=== PATIENT | male | born 1955 | race Caucasian/White ===

== ENCOUNTER → 2016-06-28 | Outpatient (CLI) | payer MEDICARE ==
--- NOTE | 2016-06-28 13:00 | US ---
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 Follow up righ t parotid nodule, history of biopsy. TECHNIQUE: Multiple sonographic images of the right parotid gland. FINDINGS: Redemonstrated 0.9 x 0.8 x 0.8cm hypoechoic to anechoic round lesion within the superficial lobe of t he right parotid gland with peripheral vascularity and posterior through transmission. This appears t o have been present on 05/12/2009 and corresponds to the enhancing nodule on CT of the same day. This measured 8 mm on 07/14/2015 and 8 mm on 05/12/2009. IMPRESSION: Solid homogeneous nodule within the superficial lobe of the right parotid gland measuring up to 9 mm. This measured 8 mm on 05/12/2009. Correlate with results from prior biopsy.
== END | disposition home or self-care (01) ==
LOC: RADUSWWP 10:08
PROVIDERS: ATTEND Otolaryngology
DX: K11.8 Other diseases of salivary glands (principal)
CPT/HCPCS: 76536

== ENCOUNTER → 2017-10-17 | Outpatient (CLI) | payer MEDICARE ==
--- NOTE | 2017-10-17 07:57 | US ---
EXAMINATION TYPE: US thyroid st tissue head/neck DATE OF EXAM: 10/17/2017 COMPARISON: US dated 06/28/2016 and biopsy dated 07/23/2015. CLINICAL HISTORY: D11.9 Right parotic nodule. Known parotid nodule, F/U Anechoic nodule with posterior enhancement within right parotid gland= 0.9 x 0.7 x 0.9 cm, essentiall y unchanged from previous. This measured 0.8 x 0.8 x 0.8 cm on the prior of 06/28/2016 and was previou sly biopsied and 07/23/2015. IMPRESSION: No interval growth of the previously biopsied rounded, benign-appearing right parotid gland lesion in comparison to the prior.
== END | disposition home or self-care (01) ==
LOC: RADUSWWP 07:26
PROVIDERS: ATTEND Otolaryngology
DX: D11.9 Benign neoplasm of major salivary gland, unspecified (principal)
CPT/HCPCS: 76536

== ENCOUNTER → 2019-01-28 | Outpatient (CLI) | payer MEDICARE ==
--- NOTE | 2019-01-28 09:00 | US ---
EXAMINATION TYPE: US thyroid st tissue head/neck DATE OF EXAM: 01/28/2019 COMPARISON: 06/28/2016 CLINICAL HISTORY: E04.1 Thyroid nodule; D11.0 Parotid Nodule. Follow up to previous. Area seen on previous scans not visualized today. IMPRESSION: Area of abnormality noted on the prior exam is not seen on today's exam.
== END | disposition home or self-care (01) ==
LOC: RADUSWWP 08:19
PROVIDERS: ATTEND Otolaryngology
DX: E04.1 Nontoxic single thyroid nodule (principal); D11.0 Benign neoplasm of parotid gland
CPT/HCPCS: 76536

== ENCOUNTER → 2019-09-29 | Outpatient (CLI) | payer MEDICARE ==
--- NOTE | 2019-09-29 09:26 | US ---
EXAMINATION TYPE: US duplex aorta DATE OF EXAM: 09/29/2019 COMPARISON: NONE CLINICAL HISTORY: Z13.6 screening for cardiovascular disorder. EXAM MEASUREMENTS: Abdominal Aorta: Proximal: 2.3cm Mid: 2.1cm Distal: 1.8cm Bifurcation: Right: 1.0.cm Left 1.1cm Patient of large body habitus, technically difficult study. IMPRESSION: No evidence for abdominal aortic aneurysm. Atheromatous changes identified.
--- NOTE | 2019-09-29 09:50 | CTL ---
EXAMINATION TYPE: CT Low Dose Lung DATE OF EXAM ORDERED: 09/29/2019 HISTORY: Personal history tobacco use. Lung cancer screening CT DLP: 150.[address] CTDI: 3.6 mGy Automated exposure control for dose reduction was used. SCREENING VISIT: 1 COMPARISON: CT chest 12/04/2009 TECHNIQUE: Low dose computed tomography scan was performed through the chest at 1 mm thick sections a nd reconstructed images in the coronal plane at [address] DIAGNOSTIC QUALITY: Satisfactory FINDINGS: LUNG NODULES: Present, detailed below: Left lung a nodule with a size of the millimeters. Nodule Size in Millimeters 3 mm was visualized wit h Nodule Type: Solid that is Nodule state: in nature on image # CT Image slide number [id number]. Lesion is subpleural location Left lung a nodule with a size of 2 mm. Nodule Size in Millimeters 2 mm was visualized with Nodule T ype: Solid that is Nodule state: in nature on image # CT Image slide number [id number]. LUNGS: COPD: Severity: None Fibrosis: Severity: None Lymph nodes: Nonenlarged Other findings: RIGHT PLEURAL SPACE: Effusion: None Calcification: None Thickening: None Pneumothorax: None LEFT PLEURAL SPACE: Effusion: None Calcification: None Thickening: None Pneumothorax: None HEART: Heart Size: Normal Coronary calcification: Moderate Pericardial effusion: None OTHER FINDINGS: Upper abdomen: Unremarkable Bony thorax: Multilevel spondylosis Supraclavicular region: Within normal limits Other: IMPRESSION: Benign FOLLOW UP CT CHEST RECOMMENDATION: [address] LUNG RAD: 2
== END | disposition home or self-care (01) ==
LOC: RADCTMAIN 08:26
PROVIDERS: ATTEND Internal Medicine
DX: Z12.2 Encounter for screening for malignant neoplasm of respiratory organs (principal); Z87.891 Personal history of nicotine dependence; Z13.6 Encounter for screening for cardiovascular disorders
CPT/HCPCS: 93979; G0297

== ENCOUNTER → 2020-12-29 | Outpatient (CLI) | payer MEDICARE ==
--- NOTE | 2020-12-29 13:12 | CT ---
EXAMINATION TYPE: CT sinus wo con DATE OF EXAM: 12/29/2020 COMPARISON: None HISTORY: chronic sinusitis CT DLP: 600 mGycm. Automated Exposure Control for Dose Reduction was Utilized. TECHNIQUE: CT scan of the sinuses is performed without contrast, axial images are obtained, coronal r eformatted images are also reviewed. FINDINGS: The paranasal sinuses including the frontal, ethmoid, sphenoid, and maxillary sinuses bila terally are remarkable for inflammatory change in the maxillary sinus on the right, there is mucoperi osteal thickening on the left, difficult to exclude underlying polyp disease Visualized portion of mastoid air cells show no abnormal opacification. The globes are intact bilate rally. IMPRESSION: The sinuses are remarkable for bilateral maxillary sinus disease as described.
== END | disposition home or self-care (01) ==
LOC: RADCTMAIN 11:03
PROVIDERS: ATTEND Family Medicine
DX: J32.0 Chronic maxillary sinusitis (principal)
CPT/HCPCS: 70486

== ENCOUNTER → 2021-05-16 | Outpatient (CLI) | payer MEDICARE ==
--- NOTE | 2021-05-16 14:49 | US ---
EXAMINATION TYPE: US kidneys/renal and bladder DATE OF EXAM: 05/16/2021 COMPARISON: NONE CLINICAL HISTORY: R82.89 ABN FINDINGS CYTOLOGICAL EXAM OF URINE. abn urine, increased urinary frequen cy EXAM MEASUREMENTS: Right Kidney: 11.8 x 5.9 x 7.5 cm Left Kidney: 12.3 x 5.7 x 7.2 cm Right Kidney: No hydronephrosis or masses seen Left Kidney: No hydronephrosis or masses seen Bladder: wnl Bilateral Jets seen: Yes IMPRESSION: 1. Normal renal ultrasound
== END | disposition home or self-care (01) ==
LOC: RADUSWWP 13:27
PROVIDERS: ATTEND Family Medicine
DX: R82.89 Other abnormal findings on cytological and histological examination of urine (principal)
CPT/HCPCS: 76770

== ENCOUNTER 2021-09-03 12:45 | Emergency (ER) | payer MEDICARE ==
[2021-09-03 13:31] LABS: Appearance,Urine Cloudy (Clear); Bacteria,Urine Moderate /hpf; Bilirubin,Urine Negative (Negative); Blood,Urine Large (Negative); Color,Urine Yellow; Glucose,Urine (UA) Negative (Negative); Ketones,Urine Negative (Negative); Leukocyte Esterase,Urine Large (Negative); Mucus,Urine Occasional /hpf; Nitrite,Urine Positive (Negative); PH, Urine 5.5 (5.0-8.0); Protein,Urine 2+ (Negative); RBC,Urine 123 /hpf (0-5); Specific Gravity,Urine 1.016 (1.001-1.035); Urobilinogen,Urine <2.0 mg/dL (<2.0); WBC,Urine >182 /hpf (0-5)
[2021-09-03] MEDS ORDERED: ACETAMINOPHEN TAB 325 MG TAB PO STA ×2 (14:15→15:41)
[2021-09-03] MEDS ORDERED: SODIUM CHLORIDE 0.9% 500 ML 500 ML IV STA (14:15)
--- NOTE | 2021-09-03 14:53 | ED ---
General Adult HPI - General Chief complaint: Fever Stated complaint: Fever, post surgery Time Seen by Provider: 09/03/21 14:38 Source: patient, family, RN notes reviewed, old records reviewed Mode of arrival: ambulatory Limitations: no limitations - History of Present Illness Initial comments: 65-year-old male presents to the emergency room with his complaining of fever and chills and generalized malaise that started around 11:00 today. He did take Tylenol around 11:00. Patient had an outpatient shaving of his prostate with Dr. Melara and had Armando catheter removed yesterday. He has no complaints of dysuria. Patient was treated for urosepsis [address] [facility] with E. coli infection and the symptoms today are similar to when he was admitted at that time. Patient did do an at home Covid test which was negative. He denies any cough, shortness of breath, chest pain or abdominal pain. -: hour(s) (5) Severity scale (1-10): 0 Consistency: constant Improves with: none Worsens with: none Associated Symptoms: fever/chills, malaise Treatments Prior to Arrival: none - Related Data Home Medications Medication Instructions Recorded Confirmed Finasteride [Proscar] 5 mg PO DAILY 09/03/21 09/03/21 Previous Rx's Medication Instructions Recorded Cephalexin [Keflex] 500 mg PO QID 10 Days #40 cap 09/03/21 Allergies Allergy/AdvReac Type Severity Reaction Status Date / Time No Known Allergies Allergy Verified 09/03/21 14:33 Review of Systems ROS Statement: Those systems with pertinent positive or pertinent negative responses have been documented in the HPI. ROS Other: All systems not noted in ROS Statement are negative. Past Medical History Past Medical History: Prostate Disorder Additional Past Medical History / Comment(s): Arthritis in hands. History of Any Multi-Drug Resistant Organisms: None Reported Past Surgical History: Joint Replacement Additional Past Surgical History / Comment(s): Left TKR. prostate surgery (cut some out), sinus surgery Past Anesthesia/Blood Transfusion Reactions: No Reported Reaction Past Psychological History: No Psychological Hx Reported Smoking Status: Never smoker Past Alcohol Use History: Occasional Past Drug Use History: None Reported - Past Family History Mother Family Medical History: Cancer, COPD Additional Family Medical History / Comment(s): Colon cancer. Father Family Medical History: Cancer Additional Family Medical History / Comment(s): Unknown cancer. Malaria. General Exam Limitations: no limitations General appearance: alert, in no apparent distress Head exam: Present: atraumatic Eye exam: Present: normal appearance. Absent: scleral icterus, conjunctival injection, periorbital swelling, periorbital tenderness ENT exam: Present: normal exam, normal oropharynx, mucous membranes moist Neck exam: Present: normal inspection, full ROM. Absent: tenderness, meningismus Respiratory exam: Present: normal lung sounds bilaterally. Absent: respiratory distress, accessory muscle use Cardiovascular Exam: Present: tachycardia GI/Abdominal exam: Present: soft, normal bowel sounds. Absent: distended, tenderness, rigid Extremities exam: Present: normal inspection, normal capillary refill. Absent: pedal edema Back exam: Present: normal inspection, full ROM. Absent: tenderness, CVA tenderness (R), CVA tenderness (L), rash noted Neurological exam: Present: alert, oriented X3 Psychiatric exam: Present: normal affect, normal mood Skin exam: Present: warm, dry, normal color. Absent: cyanosis, diaphoretic, petechiae, pallor Course Vital Signs 09/03/21 09/03/21 09/03/21 12:51 14:56 15:45 Temperature 100.6 F H 99.3 F Pulse Rate 101 H 84 Respiratory 18 16 Rate Blood Pressure 104/66 109/53 O2 Sat by Pulse 96 Oximetry Medical Decision Making - Medical Decision Making Patient presents with fever that started at 11:00 today generalized malaise. He underwent resection of prostate and had a catheter removed by Dr. Melara on . Urinalysis shows greater than 182 white blood cells with moderate bacteria and positive nitrites. There is slight leukocytosis with a white blood count of 11. Patient was given a gram of Rocephin IV. Urine and blood culture was sent. Patient states he did have urinary tract infection 5 weeks ago and was treated with Macrobid for E. coli infection. His temperature resolved with Tylenol and he is feeling much better after IV fluids. He was discharged home on Keflex, directed to contact Dr. Stratton Sunday morning to notify him of infection. Instructed to return to the emergency room with a new or concerning symptoms including increased malaise, persistent fevers, nausea vomiting or abdominal pain. Patient is agreeable to this plan of care. Case was discussed with Dr. Hall. - Lab Data Result diagrams: 09/03/21 14:50 09/03/21 14:50 Lab Results 09/03/21 09/03/21 09/03/21 Range/Units 13:06 14:50 14:50 WBC 11.4 H (3.8-10.6) k/uL RBC 4.18 L (4.30-5.90) m/uL Hgb 12.2 L (13.0-17.5) gm/dL Hct 37.5 L (39.0-53.0) % MCV 89.7 (80.0-100.0) fL MCH 29.3 (25.0-35.0) pg MCHC 32.6 (31.0-37.0) g/dL RDW 14.1 (11.5-15.5) % Plt Count 225 (150-450) k/uL MPV 6.9 Neutrophils % 86 % Lymphocytes % 6 % Monocytes % 5 % Eosinophils % 1 % Basophils % 1 % Neutrophils # 9.8 H (1.3-7.7) k/uL Lymphocytes # 0.7 L (1.0-4.8) k/uL Monocytes # 0.6 (0-1.0) k/uL Eosinophils # 0.1 (0-0.7) k/uL Basophils # 0.1 (0-0.2) k/uL Sodium 132 L (137-145) mmol/L Potassium 4.3 (3.5-5.1) mmol/L Chloride 101 (98-107) mmol/L Carbon Dioxide 24 (22-30) mmol/L Anion Gap 7 mmol/L BUN 16 (9-20) mg/dL Creatinine 0.82 (0.66-1.25) mg/dL Est GFR (CKD-EPI)AfAm >90 (>60 ml/min/1.73 sqM) Est GFR (CKD-EPI)NonAf >90 (>60 ml/min/1.73 sqM) Glucose 104 H (74-99) mg/dL Plasma Lactic Acid Yahir (0.7-2.0) mmol/L Calcium 9.0 (8.4-10.2) mg/dL Total Bilirubin 0.4 (0.2-1.3) mg/dL AST 28 (17-59) U/L ALT 25 (4-49) U/L Alkaline Phosphatase 75 (38-126) U/L Total Protein 7.2 (6.3-8.2) g/dL Albumin 4.3 (3.5-5.0) g/dL Urine Color Yellow Urine Appearance Cloudy (Clear) Urine pH 5.5 (5.0-8.0) Ur Specific [place] 1.016 (1.001-1.035) Urine Protein 2+ H (Negative) Urine Glucose (UA) Negative (Negative) Urine Ketones Negative (Negative) Urine Blood Large H (Negative) Urine Nitrite Positive (Negative) Urine Bilirubin Negative (Negative) Urine Urobilinogen <2.0 (<2.0) mg/dL Ur Leukocyte Esterase Large H (Negative) Urine RBC 123 H (0-5) /hpf Urine WBC >182 H (0-5) /hpf Urine Bacteria Moderate H (None) /hpf Urine Mucus Occasional H (None) /hpf 09/03/21 Range/Units 14:50 WBC (3.8-10.6) k/uL RBC (4.30-5.90) m/uL Hgb (13.0-17.5) gm/dL Hct (39.0-53.0) % MCV (80.0-100.0) fL MCH (25.0-35.0) pg MCHC (31.0-37.0) g/dL RDW (11.5-15.5) % Plt Count (150-450) k/uL MPV Neutrophils % % Lymphocytes % % Monocytes % % Eosinophils % % Basophils % % Neutrophils # (1.3-7.7) k/uL Lymphocytes # (1.0-4.8) k/uL Monocytes # (0-1.0) k/uL Eosinophils # (0-0.7) k/uL Basophils # (0-0.2) k/uL Sodium (137-145) mmol/L Potassium (3.5-5.1) mmol/L Chloride (98-107) mmol/L Carbon Dioxide (22-30) mmol/L Anion Gap mmol/L BUN (9-20) mg/dL Creatinine (0.66-1.25) mg/dL Est GFR (CKD-EPI)AfAm (>60 ml/min/1.73 sqM) Est GFR (CKD-EPI)NonAf (>60 ml/min/1.73 sqM) Glucose (74-99) mg/dL Plasma Lactic Acid Yahir 1.6 (0.7-2.0) mmol/L Calcium (8.4-10.2) mg/dL Total Bilirubin (0.2-1.3) mg/dL AST (17-59) U/L ALT (4-49) U/L Alkaline Phosphatase (38-126) U/L Total Protein (6.3-8.2) g/dL Albumin (3.5-5.0) g/dL Urine Color Urine Appearance (Clear) Urine pH (5.0-8.0) Ur Specific [place] (1.001-1.035) Urine Protein (Negative) Urine Glucose (UA) (Negative) Urine Ketones (Negative) Urine Blood (Negative) Urine Nitrite (Negative) Urine Bilirubin (Negative) Urine Urobilinogen (<2.0) mg/dL Ur Leukocyte Esterase (Negative) Urine RBC (0-5) /hpf Urine WBC (0-5) /hpf Urine Bacteria (None) /hpf Urine Mucus (None) /hpf Disposition Clinical Impression: UTI (urinary tract infection) Disposition: HOME SELF-CARE Condition: Good Instructions (If sedation given, give patient instructions): Urinary Tract Infection in Men (ED), Fever in Adults (ED) Additional Instructions: Increase your fluid intake, Tylenol and or Motrin as needed for fevers. Take the antibiotics as prescribed. Follow-up with Dr. Melara as scheduled on Sunday however please call his office on Sunday morning to let him know about the current infection. Return to the emergency room with any new or concerning symptoms including persistent fever, pain, worsening malaise or nausea vomiting. Prescriptions: Cephalexin [Keflex] 500 mg PO QID 10 Days #40 cap Is patient prescribed a controlled substance at d/c from ED?: No Referrals: Giacomo Javier MD [Primary Care Provider] - 1-2 days Time of Disposition: 15:41
[2021-09-03 15:04] LABS: Basophils # (A) 0.1 k/uL (0-0.2); Basophils % (A) 1 %; Eosinophils # (A) 0.1 k/uL (0-0.7); Eosinophils % (A) 1 %; HCT 37.5 % (39.0-53.0); HGB 12.2 gm/dL (13.0-17.5); Lymphocytes # (A) 0.7 k/uL (1.0-4.8); Lymphocytes % (A) 6 %; MCH 29.3 pg (25.0-35.0); MCHC 32.6 g/dL (31.0-37.0); MCV 89.7 fL (80.0-100.0); Mean Platelet Volume 6.9; Monocytes # (A) 0.6 k/uL (0-1.0); Monocytes % (A) 5 %; Neutrophils # (A) 9.8 k/uL (1.3-7.7); Neutrophils % (A) 86 %; Platelet Count 225 k/uL (150-450); RBC 4.18 m/uL (4.30-5.90); RDW 14.1 % (11.5-15.5); WBC 11.4 k/uL (3.8-10.6)
[2021-09-03 15:05] VITALS: TEMP 99.3
[2021-09-03 15:15] LABS: ALT 25 U/L (4-49); AST 28 U/L (17-59); African American GFR (CKD) >90 (>60 ml/min/1.73 sqM); Albumin 4.3 g/dL (3.5-5.0); Alkaline Phosphatase 75 U/L (38-126); Anion Gap 7 mmol/L; Blood Urea Nitrogen 16 mg/dL (9-20); Carbon Dioxide 24 mmol/L (22-30); Chloride 101 mmol/L (98-107); Glucose 104 mg/dL (74-99); Non-African American GFR(CKD) >90 (>60 ml/min/1.73 sqM); Potassium 4.3 mmol/L (3.5-5.1); Sodium 132 mmol/L (137-145); Total Bilirubin 0.4 mg/dL (0.2-1.3); Total Protein 7.2 g/dL (6.3-8.2)
[2021-09-03 15:46] VITALS: BP 109/53; PULSE 84; RESP 16
== END 2021-09-03 15:55 | disposition home or self-care (01) ==
LOC: EC 12:45
DX: N39.0 Urinary tract infection, site not specified (principal); D72.829 Elevated white blood cell count, unspecified; B96.20 Unspecified Escherichia coli [E. coli] as the cause of diseases classified elsewhere
CPT/HCPCS: 36415; 80053; 83605; 85025; 81001; 87040; 87086; 99283; 96365; J0696; 87077; 87186